=== PATIENT | female | born 1965 ===

== ENCOUNTER 2016-12-13 11:12 | Emergency (ER) | payer OTHER ==
[2016-12-13 11:59] VITALS: BP 142/82
--- NOTE | 2016-12-13 12:10 | UC ---
Throat Pain/Nasal Richard HPI - HPI Summary HPI Summary: ST, fever, chills, malaise starting yesterday. Son had RST+ about 2 weeks ago, has been taking abx for this. Pt denies cough, nasal congestion, vomiting, or rash. Is breathing and swallowing without trouble, though has a lot of pain in her throat with swallowing. - History of Current Complaint Chief Complaint: UCGeneralIllness Stated Complaint: SORE THROAT,CHILLS,FEVER Time Seen by Provider: 12/13/16 11:50 Hx Obtained From: Patient Hx Last Menstrual Period: 2011 ?: No Onset/Duration: Gradual Onset, Lasting Days Severity: Moderate Associated Signs & Symptoms: Positive: Fever. Negative: Sinus Discomfort, Nasal Discharge, Vomiting, Rash - Allergies/Home Medications Allergies/Adverse Reactions: Allergies Allergy/AdvReac Type Severity Reaction Status Date / Time No Known Allergies Allergy Verified 12/13/16 11:52 Home Medications: Home Medications Ibuprofen TAB* [Advil TAB*] 400 mg PO Q6H PRN 12/13/16 [History Confirmed ] Naproxen Sodium [Naproxen Sodium 220 mg] 440 mg PO Q12H PRN 12/13/16 [History Confirmed 12/13/16] PMH/Surg Hx/FS Hx/Imm Hx Psychological History: Anxiety, Depression, Bipolar Disorder - Surgical History Surgical History: Yes Surgery Procedure, Year, and Place: Hysterectomy, 2011, [place] [facility]; [place], 2009, [place] [facility]; Gastric Bypass, 2014, [facility] - Family History Known Family History: Positive: Hypertension - Social History Lives: With Family Alcohol Use: Occasionally Substance Use Type: None Smoking Status (MU): Former Smoker Type: Cigarettes Amount Used/How Often: 1/2-1 PPD Length of Time of Smoking/Using Tobacco: 16 Years Have You Smoked in the Last Year: No Household Exposure Type: Cigarettes Review of Systems Constitutional: Fever, Chills, Fatigue Skin: Negative Eyes: Negative ENT: Sore Throat, Ear Ache Respiratory: Negative Cardiovascular: Negative Gastrointestinal: Negative Genitourinary: Negative Motor: Negative Neurovascular: Negative Musculoskeletal: Negative Neurological: Negative Psychological: Negative All Other Systems Reviewed And Are Negative: Yes Physical Exam Triage Information Reviewed: Yes Appearance: Well-Appearing, Pain Distress - mild, Obese Vital Signs: Initial Vital Signs Temp 98.9 F 12/13/16 11:49 Pulse 70 12/13/16 11:49 Resp 16 12/13/16 11:49 BP 142/82 12/13/16 11:49 Pulse Ox 96 12/13/16 11:49 Vital Signs Reviewed: Yes Eye Exam: Normal Eyes: Positive: Conjunctiva Clear ENT: Positive: Hearing grossly normal, Pharyngeal erythema, TMs normal, Tonsillar swelling, Other: - Marked tonsillar asymmetry, swelling L>R Dental Exam: Other - dentures Neck: Positive: Enlarged Nodes @ - tonsillar Respiratory Exam: Normal Respiratory: Positive: Chest non-tender, Lungs clear, Normal breath sounds, No respiratory distress, No accessory muscle use Cardiovascular Exam: Normal Cardiovascular: Positive: RRR, No Murmur Musculoskeletal Exam: Normal Neurological Exam: Normal Neurological: Positive: Alert Psychological Exam: Normal Skin Exam: Normal Throat Pain/Nasal Course/Dx - Course Course Of Treatment: Discussed risks of peritonsillar abscess and airway obstruction because of pt's asymmetrical presentation. Since sx just started it is likely that she will improve quickly with abx alone. Pt understands and will follow up with PCP next week. If she is worsening in the mean time, especially if there is difficulty with swallowing or breathing, I directed pt to go to ED. - Differential Dx/Diagnosis Provider Diagnoses: strep tonsillitis, clinical diagnosis. elevated blood pressure due to pain Discharge - Discharge Plan Condition: Stable Disposition: HOME Prescriptions: Amoxicillin PO (*) [Amoxicillin 875 MG (*)] 875 mg PO BID #20 tab Patient Education Materials: Strep Throat (ED) Referrals: Rohit Moses MD [Primary Care Provider] - KANDI Grover [Medical Doctor] - 4 Days Additional Instructions: As we discussed, I recommend you have a follow-up appointment with your primary care provider because the swelling in your throat is mostly one-sided. If it does not resolve quickly with antibiotics, you may need further testing or treatment.
== END 2016-12-13 12:14 | disposition home or self-care (01) ==
LOC: UCCORT 11:12
DX: J03.00 Acute streptococcal tonsillitis, unspecified (principal); R03.0 Elevated blood-pressure reading, without diagnosis of hypertension; F41.9 Anxiety disorder, unspecified; F32.9 Major depressive disorder, single episode, unspecified; E66.9 Obesity, unspecified; Z90.710 Acquired absence of both cervix and uterus; Z98.84 Bariatric surgery status; Z87.891 Personal history of nicotine dependence
CPT/HCPCS: 99212; G0463